=== PATIENT | female | born 1960 | race Caucasian/White ===

== ENCOUNTER 2016-08-21 08:10 | Emergency (ER) | payer OTHER ==
[~2016-08-21] VITALS: Ht 149.9 cm; Wt 59.9 kg
[~2016-08-21 08:10] MED LIST: 70/30 INSULIN SUBQ; FLAGYL 500500 MG/100 PO; LEVAQUIN500 MG PO; MICRONASE5 MG PO; NORCO 5/325 MG1 TAB PO; ORETIC25 MG PO; [UNRECOGNIZED DRUG - OTHER] SUBQ
[2016-08-21 08:13] VITALS: BP 146/56
--- NOTE | 2016-08-21 08:20 | NUR ---
PT AMBULATED TO ER BED 05.
--- NOTE | 2016-08-21 08:36 | NUR ---
56/F presents to ED for evaluation of headache x1 week. Patient describes headache as a dull, constant, radiating to neck intermittenly, 7/10. Patient also reports a bump to the back of her head, denies trauma or injury. Pt states "I just noticed it yesterday when I was in the shower." Pt also c/o intermittent nausea, denies vomiting. Denies fever but c/o being cold. Pt also c/o being tired and more sleepy than usual. c/o blurry vision to left eye. Patient is AOX4, ambulatory with steady gait. VSS. Hx of DM. Pt sitting comfortably reading magazine. No signs of distress noted.
[2016-08-21] MEDS ORDERED: KETOROLAC 15 MG/ML VIAL IVP ONE (09:00)
[2016-08-21] MEDS ORDERED: ONDANSETRON 4 MG/2 ML VIAL IVP ONE (09:00)
--- NOTE | 2016-08-21 09:37 | NUR ---
Patient expresses feeling better. 0/10. Headache improved, nausea improved. VSS.
[2016-08-21 10:12] VITALS: BP 113/62
--- NOTE | 2016-08-21 10:12 | NUR ---
IV removed, catheter intact and site benign. Applied folded 4x4 gauze and tape to stop bleeding.
--- NOTE | 2016-08-21 10:13 | NUR ---
Patient discharged with v/s stable. Written and verbal after care instructions given and explained. Patient alert, oriented and verbalized understanding of instructions. Ambulatory with steady gait. All questions addressed prior to discharge. ID band removed. Patient advised to follow up with PMD. Rx of TYLENOL, ZOFRAN, BENADRYL given. Patient educated on indication of medication including possible reaction and side effects. Opportunity to ask questions provided and answered.
--- NOTE | 2016-08-21 10:13 | NUR ---
Chart checked and completed. The patient's care was reviewed and supervised by Fredi Davies RN.
== END 2016-08-21 10:13 | disposition home or self-care (01) ==
LOC: MED 08:10
DX: G44.209 Tension-type headache, unspecified, not intractable (principal); E11.9 Type 2 diabetes mellitus without complications; I10 Essential (primary) hypertension; Z88.0 Allergy status to penicillin; Z79.4 Long term (current) use of insulin
CPT/HCPCS: 82948; 96374; 96375; 99284; J1885; J2405

== ENCOUNTER 2016-10-10 07:17 | Emergency (ER) | payer OTHER ==
[~2016-10-10] VITALS: Ht 149.9 cm; Wt 65.8 kg
[~2016-10-10 07:17] MED LIST changes: -FLAGYL 500500 MG/100 PO; -LEVAQUIN500 MG PO; +MIC5 PO; -MICRONASE5 MG PO; -NORCO 5/325 MG1 TAB PO; +ORE25 PO; -ORETIC25 MG PO
[2016-10-10 07:28] VITALS: BP 132/63
--- NOTE | 2016-10-10 07:30 | NUR ---
PATIENT PRESENTS TO ED WITH REDNESS, PRURITUS, SWELLING TO LIPS WITH NO AIRWAY INVOLVEMENT . PT STATES ITCHING SO MUCH IT HURTS NOW . DENIES N/V/D; SKIN IS FLUSHED/WARM/DRY; AAOX4 WITH EVEN AND STEADY GAIT; LUNGS CLEAR BL; HR EVEN AND REGULAR; PT DENIES ANY FEVER, CP, SOB, OR COUGH AT THIS TIME; PATIENT STATES PAIN OF 4/10 AT THIS TIME; VSS; PATIENT POSITIONED FOR COMFORT; HOB ELEVATED; BEDRAILS UP X2; BED DOWN. ER MD MADE AWARE OF PT STATUS.
--- NOTE | 2016-10-10 07:31 | NUR ---
Patient ambulated to bed 03.
--- NOTE | 2016-10-10 07:49 | NUR ---
Dr. James evaluating patient at bedside.
[2016-10-10] MEDS ORDERED: FAMOTIDINE 20 MG/2 ML VIAL IVP ONE (07:50)
[2016-10-10] MEDS ORDERED: diphenhydrAMINE 50 MG/ML VIAL IVP ONE (07:50)
[2016-10-10] MEDS ORDERED: methylPREDNISolone SS 125 MG in WATER STERILE 2 ML IV ONE (07:50)
[2016-10-10] MEDS ORDERED: hydrOXYzine 50 MG/ML VIAL IM ONE (07:50)
--- NOTE | 2016-10-10 09:45 | NUR ---
PT ADMITS FEELING LESS PRURITUS--MD SPOKE WITH PT
--- NOTE | 2016-10-10 09:45 | NUR ---
Patient discharged with v/s stable. Written and verbal after care instructions given and explained. Patient alert, oriented and verbalized understanding of instructions. Ambulatory with steady gait. All questions addressed prior to discharge. ID band removed. Patient advised to follow up with PMD. Rx of MEDROL/EPIPEN/PEPCID/BENADRYL given. Patient educated on indication of medication including possible reaction and side effects. Opportunity to ask questions provided and answered.
[2016-10-10 09:46] VITALS: BP 117/62
== END 2016-10-10 09:45 | disposition home or self-care (01) ==
LOC: MED 07:17
PROC: 3E033GC Introduction of Other Therapeutic Substance into Peripheral Vein, Percutaneous Approach (ICD-10-PCS; principal; 2016-10-10)
DX: T78.40XA Allergy, unspecified, initial encounter (principal); I10 Essential (primary) hypertension; E11.9 Type 2 diabetes mellitus without complications; R56.9 Unspecified convulsions; Z88.0 Allergy status to penicillin; X58.XXXA Exposure to other specified factors, initial encounter
CPT/HCPCS: 96372; 96374; 96375; 99284; J1200; J2930; J3410; J3490

== ENCOUNTER 2017-03-01 11:10 | Emergency (ER) | payer OTHER ==
[~2017-03-01] VITALS: Ht 152.4 cm; Wt 73.5 kg
[~2017-03-01 11:10] MED LIST changes: -MIC5 PO
[2017-03-01 11:37] VITALS: BP 152/73
[2017-03-01 11:59] LABS: BASOPHILS # (AUTO) 0.3 K/uL (0.00-0.22); BASOPHILS % (AUTO) 3.5 % (0.0-2.0); EOSINOPHILS # (AUTO) 0.4 K/uL (0-0.4); EOSINOPHILS % (AUTO) 4.4 % (0.0-4.0); HEMATOCRIT 42.3 % (36-48); HEMOGLOBIN 13.7 g/dL (12.0-16.0); LYMPHOCYTES # (AUTO) 2.2 K/uL (2.5-16.5); LYMPHOCYTES % (AUTO) 22.2 % (20.5-51.1); MEAN CORPUSCULAR HEMOGLOBIN 29 pg (27-31); MEAN CORPUSCULAR HGB CONC 32 g/dL (33-37); MEAN CORPUSCULAR VOLUME 91 fL (80-94); MONOCYTES # (AUTO) 0.7 K/uL (0.8-1.0); NEUTROPHILS # (AUTO) 6.3 K/uL (1.8-7.7); NEUTROPHILS % (AUTO) 62.9 % (42.2-75.2); PLATELET COUNT (AUTO) 259 K/uL (140-450); RED BLOOD CELL COUNT(AUTO) 4.68 MIL/uL (4.20-5.40); WHITE BLOOD COUNT (AUTO) 9.9 K/uL (4.8-10.8)
[2017-03-01 12:22] LABS: ANION GAP 11.3 (8-16); CALCIUM 9.5 mg/dL (8.5-10.1); CARBON DIOXIDE 27.8 mmol/L (21-32); CREATININE 0.7 mg/dL (0.6-1.3); POTASSIUM 4.1 mmol/L (3.5-5.1)
[2017-03-01 12:28] LABS: ALBUMIN 3.8 g/dL (3.4-5.0); TOTAL BILIRUBIN 0.4 mg/dL (0.0-1.0); TOTAL PROTEIN, SERUM 7.5 g/dL (6.4-8.2)
[2017-03-01 14:46] LABS: APPEARANCE,URINE CLEAR (CLEAR); BILIRUBIN,URINE NEGATIVE (NEGATIVE); BLOOD, URINE NEGATIVE (NEGATIVE); COLOR,URINE YELLOW (YELLOW); LEUKOCYTE ESTERASE ,URINE NEGATIVE (NEGATIVE); NITRITE, URINE NEGATIVE (NEGATIVE); PROTEIN,URINE NEGATIVE (NEGATIVE); UGLUCOSE NEGATIVE (NEGATIVE); UROBILINOGEN,URINE 0.2 EU/dL (0.2 - 1)
[2017-03-01 15:22] VITALS: BP 167/72
== END 2017-03-01 15:21 | disposition home or self-care (01) ==
LOC: MED 11:17
DX: R51 Headache (principal); M54.9 Dorsalgia, unspecified; M79.89 Other specified soft tissue disorders; Z88.0 Allergy status to penicillin; E11.9 Type 2 diabetes mellitus without complications; I10 Essential (primary) hypertension; F17.200 Nicotine dependence, unspecified, uncomplicated
CPT/HCPCS: 36415; 71020; 80053; 81003; 81025; 82948; 83690; 85025; 99285

== ENCOUNTER 2017-04-30 07:10 | Emergency (ER) | payer OTHER ==
[~2017-04-30] VITALS: Ht 149.9 cm; Wt 76.4 kg
[2017-04-30 07:15] VITALS: BP 135/66
--- NOTE | 2017-04-30 07:23 | NUR ---
AMBULATED TO ER BED 7
--- NOTE | 2017-04-30 07:26 | NUR ---
57F BIB SELF C/O CONGESTION WITH PRODUCTIVE COUGH AND YELLOW PHLEGM X 1 WEEK; BL LUNG SOUNDS CLEAR, RR EVEN/UNLABORED, EQUAL RISE/FALL OF CHEST NOTED AT THIS TIME; PT C/O BODY ACHES, ACHING, NON-RADIATING, 6/10 X 1 WEEK; PT AA&OX4, PERRLA; PT STATES NO N/V/D AT THIS TIME; SKIN IS WARM/DRY/INTACT AT THIS TIME; STEADY GAIT; PT RESTING IN BED WITH HOB ELEVATED AND IN LOWEST POSITION; POSITIONED FOR COMFORT; ER MD MADE AWARE OF STATUS. WILL CONTINUE TO MONITOR.
--- NOTE | 2017-04-30 07:31 | NUR ---
ER MD DR. AMADO EVALUATING PT AT BEDSIDE.
[2017-04-30 07:47] VITALS: BP 125/73
--- NOTE | 2017-04-30 07:47 | NUR ---
Patient discharged with v/s stable. PT HR 58 at discharge. Pt states no dizziness, headache, fatigue, shortness of breath or discomfort at this time. ER MD notified. Written and verbal after care instructions given and explained. Patient alert, oriented and verbalized understanding of instructions. Ambulatory with steady gait. All questions addressed prior to discharge. ID band removed. Patient advised to follow up with PMD. Rx of CODEINE/GUAIFENESIN 10MG-100MG/5ML & AZITHROMYCIN 250 MG TAB given. Patient educated on indication of medication including possible reaction and side effects. Opportunity to ask questions provided and answered.
== END 2017-04-30 07:47 | disposition home or self-care (01) ==
LOC: MED 07:10
DX: J06.9 Acute upper respiratory infection, unspecified (principal); E11.9 Type 2 diabetes mellitus without complications; I10 Essential (primary) hypertension; F17.210 Nicotine dependence, cigarettes, uncomplicated
CPT/HCPCS: 82948; 99283

== ENCOUNTER 2017-08-19 11:48 | Emergency (ER) | payer OTHER ==
[~2017-08-19] VITALS: Ht 149.9 cm; Wt 78.9 kg
[2017-08-19 12:01] VITALS: BP 149/64
--- NOTE | 2017-08-19 12:08 | NUR ---
PATIENT TO ER BED 3 VIA W/C
--- NOTE | 2017-08-19 12:10 | NUR ---
57f bib daughter with c/o 8/10 constant "sharp" left posterior knee pain radiating to left lower back and neck. Pt denies any recent injury or falls. Pt sts pain worse with movement. Swelling noted to left knee. + tenderness to touch. CMS and skin intact to bl lower extremities. Pt is aox4. RR are even and unlabored. Pt positioned to comfort, bed down. ER md aware of pt status. All needs met at this time. Will continue to monitor.
--- NOTE | 2017-08-19 12:15 | NUR ---
xray by bedside
--- NOTE | 2017-08-19 13:20 | NUR ---
DR. BROWN BEDSIDE
[2017-08-19] MEDS ORDERED: KETOROLAC 60 MG/2 ML VIAL IM ONE (13:25)
--- NOTE | 2017-08-19 13:51 | NUR ---
Patient discharged with v/s stable. Written and verbal after care instructions given and explained. Patient verbalized understanding. Ambulatory with steady gait. All questions addressed prior to discharge. Advised to follow up with PMD.
[2017-08-19 13:52] VITALS: BP 143/69
== END 2017-08-19 13:51 | disposition home or self-care (01) ==
LOC: MED 11:48
DX: M25.562 Pain in left knee (principal); E11.9 Type 2 diabetes mellitus without complications; I10 Essential (primary) hypertension; Z88.0 Allergy status to penicillin
CPT/HCPCS: 73562; 81002; 81025; 82948; 96372; 99284; J1885

== ENCOUNTER 2018-03-11 07:54 | Emergency (ER) | payer OTHER ==
[~2018-03-11] VITALS: Ht 160 cm; Wt 93.0 kg
--- NOTE | 2018-03-11 08:02 | NUR ---
PT AMBULATES TO BED 11
[2018-03-11 08:03] VITALS: BP 141/70
--- NOTE | 2018-03-11 08:06 | NUR ---
PROVIDED WITH URINE CUP FOR SAMPLE
--- NOTE | 2018-03-11 08:10 | NUR ---
PATIENT PRESENTS TO ED WITH COMPLAINTS OF ABDOMINAL PAIN WITH NAUSEA/VOMITING SINCE 2AM THIS MORNING. PATIENT STATES SHE GET A FLUSHED FEELING THROUGHOUT HER BODY AND STOMACH PAIN RIGHT BEFORE SHE VOMITS. PT REPORTS HX OF DIABETES AND INSULIN USE. ACCUCHECK BLOOD SUGAR AT TIME OF TRIAGE 293. PATIENT ALSO PROVIDED URINE AT TIME OF TRIAGE. SKIN IS PINK/WARM/DRY; AAOX4 WITH EVEN AND STEADY GAIT; LUNGS CLEAR BL; HR EVEN AND REGULAR; PT DENIES ANY CP, SOB, OR COUGH AT THIS TIME; PATIENT STATES PAIN OF 8/10 AT THIS TIME; VSS; PATIENT POSITIONED FOR COMFORT; HOB ELEVATED; BEDRAILS UP X1; BED DOWN. ER MD MADE AWARE OF PT STATUS.
[2018-03-11] MEDS ORDERED: NACL 0.9% 1,000 ML IV ONE (08:30)
[2018-03-11] MEDS ORDERED: METOCLOPRAMIDE 10 MG/2 ML INJ VIAL IVP ONE (08:30)
[2018-03-11] MEDS ORDERED: MORPHINE SULFATE 4 MG/ML SYR IVP ONE (08:30)
[2018-03-11] MEDS ORDERED: PROMETHAZINE 25 MG/ML VIAL IM ONE (08:30)
[2018-03-11] MEDS ORDERED: NACL 0.9% 1,000 ML IV SCH (08:30)
[2018-03-11] MEDS ORDERED: FAMOTIDINE 20 MG/2 ML VIAL IVP ONE (08:30)
--- NOTE | 2018-03-11 08:49 | NUR ---
ultrasound at bedside
[2018-03-11 09:27] LABS: BASOPHILS # (AUTO) 0.1 K/uL (0.00-0.22); BASOPHILS % (AUTO) 0.4 % (0.0-2.0); EOSINOPHILS # (AUTO) 0.5 K/uL (0-0.4); EOSINOPHILS % (AUTO) 3.6 % (0.0-4.0); HEMATOCRIT 39.7 % (36-48); LYMPHOCYTES # (AUTO) 2.2 K/uL (2.5-16.5); LYMPHOCYTES % (AUTO) 15.5 % (20.5-51.1); MEAN CORPUSCULAR HEMOGLOBIN 29 pg (27-31); MEAN CORPUSCULAR HGB CONC 33 g/dL (33-37); MEAN CORPUSCULAR VOLUME 88.6 fL (80-94); MONOCYTES # (AUTO) 0.6 K/uL (0.8-1.0); MONOCYTES % (AUTO) 4.5 % (1.7-9.3); NEUTROPHILS # (AUTO) 10.5 K/uL (1.8-7.7); PLATELET COUNT (AUTO) 262 K/uL (140-450); RED BLOOD CELL COUNT(AUTO) 4.49 MIL/uL (4.20-5.40); RED CELL DISTRIBUTION WIDTH 14.1 % (11.6-13.7); WHITE BLOOD COUNT (AUTO) 13.9 K/uL (4.8-10.8)
--- NOTE | 2018-03-11 09:35 | NUR ---
PT TAKEN TO CT IN WHEELCHAIR
[2018-03-11 09:47] LABS: ANION GAP 9.6 (8-16); CARBON DIOXIDE 26.2 mmol/L (21-32); CREATININE 0.5 mg/dL (0.6-1.3); POTASSIUM 3.8 mmol/L (3.5-5.1)
[2018-03-11 09:52] LABS: APPEARANCE,URINE CLEAR (CLEAR); BILIRUBIN,URINE NEGATIVE (NEGATIVE); BLOOD, URINE NEGATIVE (NEGATIVE); COLOR,URINE YELLOW (YELLOW); LEUKOCYTE ESTERASE ,URINE NEGATIVE (NEGATIVE); NITRITE, URINE NEGATIVE (NEGATIVE); PH,URINE 6.5 (5.0-9.0); UGLUCOSE 3+ (NEGATIVE)
[2018-03-11 09:55] LABS: ALBUMIN 3.3 g/dL (3.4-5.0); TOTAL BILIRUBIN 0.2 mg/dL (0.0-1.0)
[2018-03-11 10:12] LABS: RBC,URINE NONE SEEN /HPF (0-5); WBC,URINE 0-5 (RARE) /HPF (0-5)
[2018-03-11 11:53] VITALS: BP 139/72
--- NOTE | 2018-03-11 11:55 | NUR ---
Patient discharged with v/s stable. Written and verbal after care instructions given and explained. Patient alert, oriented and verbalized understanding of instructions. Ambulatory with steady gait. All questions addressed prior to discharge. ID band removed. Patient advised to follow up with PMD. Rx of NEXIUM AND REGLAN given. Patient educated on indication of medication including possible reaction and side effects. Opportunity to ask questions provided and answered.
== END 2018-03-11 11:55 | disposition home or self-care (01) ==
LOC: MED 07:54
DX: E11.43 Type 2 diabetes mellitus with diabetic autonomic (poly)neuropathy (principal); K31.84 Gastroparesis; K40.91 Unilateral inguinal hernia, without obstruction or gangrene, recurrent; Z88.0 Allergy status to penicillin; Z79.899 Other long term (current) drug therapy
CPT/HCPCS: 36415; 74176; 76705; 80053; 81001; 82150; 83690; 85025; 96361; 96372; 96374; 96375; 99285; J2270; J2550; J2765; J3490; J7030; Q0092

== ENCOUNTER 2018-06-25 05:45 | Emergency (ER) | payer OTHER ==
[~2018-06-25] VITALS: Ht 149.9 cm; Wt 81.6 kg
[2018-06-25 05:54] VITALS: BP 148/68
--- NOTE | 2018-06-25 05:57 | NUR ---
PT TAKEN TO BED 8
--- NOTE | 2018-06-25 06:00 | NUR ---
58/F CAME IN W C/O MIDSTERNAL CHEST PAIN NONPROVOKED, NONRADIATING X 3 DAYS WORSENED THIS MORNING. ALSO REPORTS BLURRY VISION AND HEADACHE, -MLAPSS. ALL LUNG SOUNDS CBTA, 18RR EVEN AND UNLABORED. SKIN IS WARM AND DRY. DENIES N/V. PMH: DM, HTN, HERNIA
[2018-06-25] MEDS ORDERED: ASPIRIN 325 MG TAB PO ONE (06:05)
--- NOTE | 2018-06-25 06:19 | NUR ---
X-Ray at bedside.
[2018-06-25 06:58] LABS: BASOPHILS # (AUTO) 0.1 K/uL (0.00-0.22); BASOPHILS % (AUTO) 0.7 % (0.0-2.0); EOSINOPHILS # (AUTO) 0.4 K/uL (0-0.4); EOSINOPHILS % (AUTO) 3.6 % (0.0-4.0); HEMATOCRIT 42.1 % (36-48); HEMOGLOBIN 13.6 g/dL (12.0-16.0); LYMPHOCYTES # (AUTO) 3.7 K/uL (2.5-16.5); LYMPHOCYTES % (AUTO) 32.7 % (20.5-51.1); MEAN CORPUSCULAR HEMOGLOBIN 28 pg (27-31); MEAN CORPUSCULAR HGB CONC 32 g/dL (33-37); MEAN CORPUSCULAR VOLUME 87.5 fL (80-94); MONOCYTES # (AUTO) 0.8 K/uL (0.8-1.0); MONOCYTES % (AUTO) 7.4 % (1.7-9.3); NEUTROPHILS # (AUTO) 6.2 K/uL (1.8-7.7); NEUTROPHILS % (AUTO) 55.6 % (42.2-75.2); PLATELET COUNT (AUTO) 295 K/uL (140-450); RED BLOOD CELL COUNT(AUTO) 4.82 MIL/uL (4.20-5.40); RED CELL DISTRIBUTION WIDTH 14.2 % (11.6-13.7); WHITE BLOOD COUNT (AUTO) 11.2 K/uL (4.8-10.8)
--- NOTE | 2018-06-25 07:09 | NUR ---
GAVE REPORT TO BOBBI AVILA
--- NOTE | 2018-06-25 07:10 | NUR ---
received report from anita toth.
[2018-06-25 07:14] LABS: ANION GAP 13.2 (8-16); CARBON DIOXIDE 27.1 mmol/L (21-32); CREATININE 0.8 mg/dL (0.6-1.3); POTASSIUM 3.3 mmol/L (3.5-5.1); TOTAL BILIRUBIN 0.5 mg/dL (0.0-1.0)
[2018-06-25 07:15] LABS: ALBUMIN 3.6 g/dL (3.4-5.0)
[2018-06-25 07:28] LABS: CREATINE KINASE MB 1.7 ng/mL (0-3.6)
--- NOTE | 2018-06-25 07:30 | NUR ---
Patient being evaluated by DR BROWN at bedside.
[2018-06-25] MEDS ORDERED: KETOROLAC 30 MG/ML VIAL IVP ONE (07:35)
--- NOTE | 2018-06-25 08:13 | NUR ---
PT RETURNED FROM X RAY VIA W/C, ACCOMPANIED BY MIXER OPERATOR.
--- NOTE | 2018-06-25 08:24 | NUR ---
Patient appears to be resting comfortably in bed. Vital BP 136/57, P55, Respirations even and unlabored. L CHEST PAIN 4/10 AT THIS TIME.WILL CONTINUE TO MONITOR.
--- NOTE | 2018-06-25 08:35 | NUR ---
Patient being reevaluated by DR BROWN at bedside.
[2018-06-25 08:45] VITALS: BP 136/57
== END 2018-06-25 08:45 | disposition home or self-care (01) ==
LOC: MED 05:45
DX: R07.89 Other chest pain (principal); R10.30 Lower abdominal pain, unspecified; E11.9 Type 2 diabetes mellitus without complications; I10 Essential (primary) hypertension; Z88.0 Allergy status to penicillin; Z88.8 Allergy status to other drugs, medicaments and biological substances
CPT/HCPCS: 36415; 71045; 71100; 80053; 81002; 82550; 82553; 83690; 84484; 85025; 93005; 96374; 99284; J1885; Q0092

== ENCOUNTER 2018-11-01 09:10 | Emergency (ER) | payer OTHER ==
[~2018-11-01] VITALS: Ht 149.9 cm; Wt 81.6 kg
[2018-11-01 09:14] VITALS: BP 125/68
--- NOTE | 2018-11-01 09:18 | NUR ---
Patient ambulated to bed 8. RN evaluating patient at bedside.
--- NOTE | 2018-11-01 09:19 | NUR ---
Report given to Amelia AVILA.
--- NOTE | 2018-11-01 09:22 | NUR ---
58 Y FEMALE BIB SELF C/O PRODUCTIVE COUGH X 1 WEEK WORSENING OVER THE LAST COUPLE DAYS, HEADACHE AND CHEST PAIN WITH COUGH 4/10, DESCRIBES PAIN ACHING. CLEAR BILATERAL LUNG SOUNDS. -N/V. BED IS DOWN, LOCKED, BED RAIL X 1, ERMD NOTIFIED. PMH- DM RX- INSULIN
--- NOTE | 2018-11-01 09:45 | NUR ---
Dr. Bolivar evaluating patient at bedside.
[2018-11-01] MEDS ORDERED: ALBUTEROL SULFATE/IPRATROPIU 3 ML SOL IH ONE (09:50)
--- NOTE | 2018-11-01 09:54 | NUR ---
pt being taken to xray
--- NOTE | 2018-11-01 10:00 | NUR ---
flu swab collected
[2018-11-01 11:25] VITALS: BP 128/70
--- NOTE | 2018-11-01 11:25 | NUR ---
Patient discharged with v/s stable. Written and verbal after care instructions given and explained. Patient alert, oriented and verbalized understanding of instructions. Ambulatory with steady gait. All questions addressed prior to discharge. ID band removed. Patient advised to follow up with PMD. Rx of azithromycin, albuterol given. Patient educated on indication of medication including possible reaction and side effects. Opportunity to ask questions provided and answered.
== END 2018-11-01 11:25 | disposition home or self-care (01) ==
LOC: MED 09:10
DX: J40 Bronchitis, not specified as acute or chronic (principal); E11.9 Type 2 diabetes mellitus without complications; I10 Essential (primary) hypertension; Z88.0 Allergy status to penicillin; Z79.899 Other long term (current) drug therapy
CPT/HCPCS: 71046; 87804; 94640; 99284; J7620

== ENCOUNTER 2018-12-20 12:03 | Emergency (ER) | payer OTHER ==
[~2018-12-20] VITALS: Ht 149.9 cm; Wt 82.7 kg
--- NOTE | 2018-12-20 12:20 | NUR ---
PT TO ER BED 6
[2018-12-20 12:24] VITALS: BP 146/77
--- NOTE | 2018-12-20 12:30 | NUR ---
PT AMB TO RESTROOM WITH STEADY GAIT FOR URINE SAMPLE
--- NOTE | 2018-12-20 12:35 | NUR ---
58 Y FEMALE BIB SELF C/O BLOATING MID ABDOMINAL PAIN SINCE LAST TUESDAY. DENIES NVD. LAST BM THIS AM, PT DESCRIBED IT "MUSHY". BOWEL SOUNDS ACTIVE IN ALL 4 QUADRANTS. ABDOMEN TENDER TO TOUCH, SOFT AND ROUND. PAIN 5/10. DENIES FLANK PAIN/DYSURIA. VSS AT THIS TIME. AA0X4. BED IS DOWN, LOCKED, BED RAIL X 1, ERMD TO SEE PT. HX; DM, HTN
--- NOTE | 2018-12-20 12:42 | NUR ---
ACCU CHECK 252
--- NOTE | 2018-12-20 12:48 | NUR ---
RESIDENT GERMAIN AT PT BEDSIDE
--- NOTE | 2018-12-20 13:10 | NUR ---
DR HURST AT BEDSIDE
[2018-12-20 13:32] LABS: BILIRUBIN,URINE NEGATIVE (NEGATIVE); BLOOD, URINE NEGATIVE (NEGATIVE); COLOR,URINE YELLOW (YELLOW); LEUKOCYTE ESTERASE ,URINE NEGATIVE (NEGATIVE); NITRITE, URINE NEGATIVE (NEGATIVE); UGLUCOSE 3+ (NEGATIVE)
[2018-12-20 13:38] LABS: APPEARANCE,URINE CLEAR (CLEAR); RBC,URINE 0-5 /HPF (0-5); WBC,URINE 0-5 /HPF (0-5)
--- NOTE | 2018-12-20 13:48 | NUR ---
IV 18 GA RT HAND, BLOOD SENT TO LAB.
[2018-12-20 13:52] LABS: BASOPHILS # (AUTO) 0.1 K/uL (0.00-0.22); BASOPHILS % (AUTO) 0.6 % (0.0-2.0); EOSINOPHILS # (AUTO) 0.3 K/uL (0-0.4); EOSINOPHILS % (AUTO) 2.9 % (0.0-4.0); HEMATOCRIT 42.1 % (36-48); HEMOGLOBIN 13.8 g/dL (12.0-16.0); LYMPHOCYTES # (AUTO) 2.4 K/uL (2.5-16.5); LYMPHOCYTES % (AUTO) 20.6 % (20.5-51.1); MEAN CORPUSCULAR HEMOGLOBIN 29 pg (27-31); MEAN CORPUSCULAR HGB CONC 33 g/dL (33-37); MEAN CORPUSCULAR VOLUME 88.2 fL (80-94); MONOCYTES # (AUTO) 0.6 K/uL (0.8-1.0); NEUTROPHILS # (AUTO) 8.4 K/uL (1.8-7.7); NEUTROPHILS % (AUTO) 70.9 % (42.2-75.2); PLATELET COUNT (AUTO) 314 K/uL (140-450); RED BLOOD CELL COUNT(AUTO) 4.78 MIL/uL (4.20-5.40); RED CELL DISTRIBUTION WIDTH 14.4 % (11.6-13.7); WHITE BLOOD COUNT (AUTO) 11.8 K/uL (4.8-10.8)
--- NOTE | 2018-12-20 14:01 | NUR ---
IV R AC 18 G PLACED BY JUAN C AVILA
--- NOTE | 2018-12-20 14:08 | NUR ---
PT SIGNED CONSENT FORM FOR CT WITH CONTRAST
[2018-12-20 14:16] LABS: ALBUMIN 3.4 g/dL (3.4-5.0); ANION GAP 13.6 (8-16); CARBON DIOXIDE 24.3 mmol/L (21-32); CREATININE 0.7 mg/dL (0.6-1.3); POTASSIUM 3.9 mmol/L (3.5-5.1); TOTAL BILIRUBIN 0.2 mg/dL (0.0-1.0)
--- NOTE | 2018-12-20 14:30 | NUR ---
PT BEING TAKEN TO CT
--- NOTE | 2018-12-20 14:41 | NUR ---
PT RETURNED FROM CT. AA0X4.
[2018-12-20] MEDS ORDERED: diphenhydrAMINE 50 MG/ML VIAL IVP ONE (14:50)
--- NOTE | 2018-12-20 14:57 | NUR ---
PT GIVEN BENADRYL IVP. PT C/O TINGLING IN FACE AND LIPS AFTER CT CONTRAST. WILL CONTINUE TO MONITOR.
--- NOTE | 2018-12-20 15:15 | NUR ---
PT ASTATES THE TINGLING HAS STOPPED.
--- NOTE | 2018-12-20 16:00 | NUR ---
PT AMB TO RESTROOM WITH STEADY GAIT
--- NOTE | 2018-12-20 17:08 | NUR ---
VSS AT THIS TIME. PT AA0X4. PAIN 09/03.
[2018-12-20 18:05] VITALS: BP 131/55
--- NOTE | 2018-12-20 18:05 | NUR ---
Patient discharged with v/s stable. Written and verbal after care instructions given and explained. Patient alert, oriented and verbalized understanding of instructions. Ambulatory with steady gait. All questions addressed prior to discharge. ID band removed. Patient advised to follow up with PMD. Rx of BLADE NIETO given. Patient educated on indication of medication including possible reaction and side effects. Opportunity to ask questions provided and answered.
== END 2018-12-20 18:05 | disposition home or self-care (01) ==
LOC: MED 12:03
DX: R10.9 Unspecified abdominal pain (principal); R14.0 Abdominal distension (gaseous); I10 Essential (primary) hypertension; E11.9 Type 2 diabetes mellitus without complications; Z88.0 Allergy status to penicillin; Z79.4 Long term (current) use of insulin
CPT/HCPCS: 36415; 74177; 80053; 81001; 82948; 83690; 83880; 85025; 96374; 99284; J1200; Q9967; 81025

== ENCOUNTER 2019-01-21 07:56 | Emergency (ER) | payer OTHER ==
[~2019-01-21] VITALS: Ht 149.9 cm; Wt 82.6 kg
[2019-01-21 07:59] VITALS: BP 163/73
--- NOTE | 2019-01-21 08:03 | NUR ---
PATIENT AMBULATED TO BED 4.
--- NOTE | 2019-01-21 08:06 | NUR ---
PT PRESENTS TO ED WITH C/O PRODUCTIVE COUGH AND RUNNY NOSE X 3 DAYS. +NAUSEA, +VOMITING, +FEVER; AFEBRILE AT THIS TIME. RR EVEN AND UNLABORED. VSS. ERMD TO EVALUATE PT.
[2019-01-21] MEDS ORDERED: DEXAMETHASONE 10 MG/ML VIAL IM ONE (08:20)
[2019-01-21] MEDS ORDERED: CLINDAMYCIN 600 MG/4 ML VIAL IM ONE (08:20)
[2019-01-21] MEDS ORDERED: ALBUTEROL SULFATE/IPRATROPIU 3 ML SOL IH ONE (08:20)
[2019-01-21 08:45] VITALS: BP 133/47
--- NOTE | 2019-01-21 08:45 | NUR ---
Patient discharged with v/s stable. Written and verbal after care instructions given and explained. Patient alert, oriented and verbalized understanding of instructions. Ambulatory with steady gait. All questions addressed prior to discharge. ID band removed. Patient advised to follow up with PMD. Rx of Promethazine, Azithromycin, Prednisone given. Patient educated on indication of medication including possible reaction and side effects. Opportunity to ask questions provided and answered.
== END 2019-01-21 08:45 | disposition home or self-care (01) ==
LOC: MED 07:56
DX: J40 Bronchitis, not specified as acute or chronic (principal); E11.9 Type 2 diabetes mellitus without complications; I10 Essential (primary) hypertension; Z79.4 Long term (current) use of insulin; Z79.899 Other long term (current) drug therapy; Z88.0 Allergy status to penicillin
CPT/HCPCS: 94640; 96372; 99283; J1100; J3490; J7620

== ENCOUNTER 2019-02-20 06:35 | Emergency (ER) | payer OTHER ==
[~2019-02-20] VITALS: Ht 149.9 cm; Wt 82.6 kg
[2019-02-20 06:40] VITALS: BP 173/76
--- NOTE | 2019-02-20 06:48 | NUR ---
PT AMBULATED TO BED 8. Addendum: 02/20/19 at 0651 by MEDJ PT AMBULATED TO BED 9.
--- NOTE | 2019-02-20 06:52 | NUR ---
Note undone in EDM - 02/20/19 at 0659 by MEDJOSHUA PT CAME TO ER C/O OF RASH ON RIGHT LEG AND TRUNK REGION. RASH AREA IS RED, WARM, FIRM, AND EDEMATOUS. NO DRAINAGE OR OPEN AREAS NOTED. PT HAS GENERALIZED WEAKNESS, SORE THROAT, AND FEVER AT HOME SINCE THE ONSET OF RASH. CURRENTLY AFEBRILE. PAIN LEVEL 5/10, BURNING AND ITCHING. PT TOOK BENADRYL LAST NIGHT WITH MILD RELIEF. SAFETY MEASURES IN PLACE. WAITING FOR ERMD TO EVALUATE PT.
--- NOTE | 2019-02-20 06:52 | NUR ---
PT CAME TO ER C/O OF RASH ON RIGHT LEG AND TRUNK REGION SINCE TUESDAY. RASH AREA IS RED, WARM, FIRM, AND EDEMATOUS. NO DRAINAGE OR OPEN AREAS NOTED. PT HAS GENERALIZED WEAKNESS, SORE THROAT, AND FEVER AT HOME SINCE THE ONSET OF RASH. CURRENTLY AFEBRILE. PAIN LEVEL 5/10, BURNING AND ITCHING. PT TOOK BENADRYL LAST NIGHT AROUND 8PM WITH MILD RELIEF. SAFETY MEASURES IN PLACE. WAITING FOR ERMD TO EVALUATE PT.
--- NOTE | 2019-02-20 07:23 | NUR ---
PT. BEING SEEN BY DOCTOR.
[2019-02-20] MEDS ORDERED: SULFAMETH/TRIMETH DS 800/160MG 1 TAB PO ONE (07:25)
[2019-02-20 07:41] VITALS: BP 173/76
--- NOTE | 2019-02-20 07:43 | NUR ---
Patient discharged with v/s stable. Written and verbal after care instructions given and explained. Patient alert, oriented and verbalized understanding of instructions. Ambulatory with steady gait. All questions addressed prior to discharge. ID band removed. Patient advised to follow up with PMD. Rx of BACTRIM DS 800MG-160MG AND BENADRYL TOPICAL CREAM given. Patient educated on indication of medication including possible reaction and side effects. Opportunity to ask questions provided and answered.
== END 2019-02-20 07:43 | disposition home or self-care (01) ==
LOC: MED 06:35
DX: S70.361A Insect bite (nonvenomous), right thigh, initial encounter (principal); S70.362A Insect bite (nonvenomous), left thigh, initial encounter; L03.115 Cellulitis of right lower limb; L03.116 Cellulitis of left lower limb; E11.9 Type 2 diabetes mellitus without complications; I10 Essential (primary) hypertension; Z88.0 Allergy status to penicillin; Z79.4 Long term (current) use of insulin; Z79.899 Other long term (current) drug therapy; W57.XXXA Bitten or stung by nonvenomous insect and other nonvenomous arthropods, initial encounter; Y93.89 Activity, other specified; Y92.89 Other specified places as the place of occurrence of the external cause; Y99.8 Other external cause status
CPT/HCPCS: 99283

== ENCOUNTER 2019-05-05 07:57 | Emergency (ER) | payer OTHER ==
[~2019-05-05] VITALS: Ht 149.9 cm; Wt 81.6 kg
[2019-05-05 08:00] VITALS: BP 126/63
--- NOTE | 2019-05-05 08:03 | NUR ---
Patient ambulated to bed 03.
--- NOTE | 2019-05-05 08:10 | NUR ---
PT BIB SELF C/O COUGH X3 DAYS. PT REPORTS PRODUCTIVE COUGH WITH YELLOW SPUTUM THE FIRST 2 DAYS AND THEN THICK WHITE SPUTUM TODAY, RR EVEN AND NON LABORED, BREATH SOUDNS CLEAR THROUGHOUT, PT DENIES SOB, PRESENCE OF DRY SOUNDING COUGH NOTED. PT REPORTS 8/10 "DRY PAIN" IN THROAT AND BACK WITH COUGH. VSS. ER TO SEE PT. MEDHX: DM RX: INSULIN
[2019-05-05] MEDS ORDERED: ALBUTEROL SULFATE/IPRATROPIU 3 ML SOL IH ONE (08:15)
--- NOTE | 2019-05-05 08:19 | NUR ---
Breathing treatment administered at bedside by respiratory therapist.
[2019-05-05 08:29] VITALS: BP 126/63
--- NOTE | 2019-05-05 08:29 | NUR ---
Patient discharged with v/s stable. Written and verbal after care instructions given and explained. Patient alert, oriented and verbalized understanding of instructions. Ambulatory with steady gait. All questions addressed prior to discharge. ID band removed. Patient advised to follow up with PMD. Rx of JESSICA WATSON given. Patient educated on indication of medication including possible reaction and side effects. Opportunity to ask questions provided and answered.
== END 2019-05-05 08:30 | disposition home or self-care (01) ==
LOC: MED 07:57
DX: R05 Cough (principal); R06.02 Shortness of breath; I10 Essential (primary) hypertension; E11.9 Type 2 diabetes mellitus without complications; Z79.4 Long term (current) use of insulin; Z79.899 Other long term (current) drug therapy; Z88.0 Allergy status to penicillin
CPT/HCPCS: 94640; 99283; J7620

== ENCOUNTER 2019-05-09 14:25 | Emergency (ER) | payer OTHER ==
[~2019-05-09] VITALS: Ht 149.9 cm; Wt 81.6 kg
[2019-05-09 14:38] VITALS: BP 125/73
[2019-05-09] MEDS: DEXAMETHASONE 10 MG/ML VIAL IM ONE (15:27)
[2019-05-09] MEDS: KETOROLAC 30 MG/ML VIAL IM ONE (15:27)
[2019-05-09 15:52] VITALS: BP 122/70
== END 2019-05-09 15:51 | disposition home or self-care (01) ==
LOC: MED 14:25
DX: H66.92 Otitis media, unspecified, left ear (principal); J40 Bronchitis, not specified as acute or chronic; E11.9 Type 2 diabetes mellitus without complications; I10 Essential (primary) hypertension; Z79.4 Long term (current) use of insulin; Z79.899 Other long term (current) drug therapy; Z88.0 Allergy status to penicillin
CPT/HCPCS: 96372; 99283; J1100; J1885

== ENCOUNTER 2019-07-07 19:25 | Emergency (ER) | payer OTHER ==
[~2019-07-07] VITALS: Ht 149.9 cm; Wt 82.1 kg
[2019-07-07 19:31] VITALS: BP 134/57
--- NOTE | 2019-07-07 19:43 | NUR ---
PT TAKEN TO BED 9
--- NOTE | 2019-07-07 19:44 | NUR ---
JOSE ALEJANDRO CHEN EXAMINING PATIENT
--- NOTE | 2019-07-07 19:45 | NUR ---
59 Y/O FEMALE C/O LT ARM PAIN S/P RECEVING SHINGLES VACCINE ON 07/04/19. AREA REDDENED AND WARM TO THE TOUCH. PT STATES 7/10 THROBBING PAIN. PT STATES PURPLE AREA UNDER RT BREAST. RT BREAST TENDER TO THE TOUCH. DENIES CHEST PAIN/SOB. RR EVEN AND UNLABORED. PT SITTING IN BED CALM AND PLEASANT. VSS. MEDHX: DM ALLERGIES: PENICILLIN
[2019-07-07 19:57] VITALS: BP 134/57
--- NOTE | 2019-07-07 19:59 | NUR ---
Patient discharged with v/s stable. Written and verbal after care instructions given and explained. Patient alert, oriented and verbalized understanding of instructions. Ambulatory with steady gait. All questions addressed prior to discharge. ID band removed. Patient advised to follow up with PMD. Rx of BACTRIM AND IBURPROFEN given. Patient educated on indication of medication including possible reaction and side effects. Opportunity to ask questions provided and answered.
== END 2019-07-07 19:59 | disposition home or self-care (01) ==
LOC: MED 19:25
DX: T88.0XXA Infection following immunization, initial encounter (principal); L03.114 Cellulitis of left upper limb; N61.0 Mastitis without abscess; E11.9 Type 2 diabetes mellitus without complications; I10 Essential (primary) hypertension; Z79.899 Other long term (current) drug therapy; Z79.4 Long term (current) use of insulin; Z88.0 Allergy status to penicillin; Y92.89 Other specified places as the place of occurrence of the external cause
CPT/HCPCS: 99283

== ENCOUNTER 2019-12-18 13:08 | Emergency (ER) | payer OTHER ==
[~2019-12-18] VITALS: Ht 149.9 cm; Wt 81.6 kg
[2019-12-18 13:20] VITALS: BP 148/64
--- NOTE | 2019-12-18 13:20 | NUR ---
59/F presents to ED ambulatory, c/o diarrhea, L sided abd pain and headache x1week; n/v x2 days. Reports sweating at night but no fever, afebrile at this time. Pt awake and alert, skin normal color warm and dry, rr even and unlabored. Abd soft round mildly tender to L sided mid abd, no guarding. Hx HTN, DM, L inguinal hernia repair
--- NOTE | 2019-12-18 13:20 | NUR ---
Negative screen for covid-19
--- NOTE | 2019-12-18 13:45 | NUR ---
DR. CERVANTES AT BEDSIDE EVALUATING PT
[2019-12-18] MEDS ORDERED: NACL 0.9% 1,000 ML IV ONE (13:54)
[2019-12-18] MEDS ORDERED: KETOROLAC 30 MG/ML VIAL IVP ONE (13:55)
[2019-12-18] MEDS ORDERED: ONDANSETRON 4 MG/2 ML VIAL IVP ONE (13:55)
[2019-12-18 14:21] LABS: BASOPHILS # (AUTO) 0.1 K/uL (0.00-0.22); BASOPHILS % (AUTO) 0.8 % (0.0-2.0); EOSINOPHILS # (AUTO) 0.3 K/uL (0-0.4); EOSINOPHILS % (AUTO) 2.2 % (0.0-4.0); HEMATOCRIT 42.1 % (36-48); HEMOGLOBIN 13.8 g/dL (12.0-16.0); LYMPHOCYTES # (AUTO) 2.9 K/uL (2.5-16.5); LYMPHOCYTES % (AUTO) 21.9 % (20.5-51.1); MEAN CORPUSCULAR HEMOGLOBIN 29 pg (27-31); MEAN CORPUSCULAR HGB CONC 33 g/dL (33-37); MEAN CORPUSCULAR VOLUME 87.8 fL (80-94); MONOCYTES # (AUTO) 0.8 K/uL (0.8-1.0); MONOCYTES % (AUTO) 6.1 % (1.7-9.3); NEUTROPHILS # (AUTO) 9.3 K/uL (1.8-7.7); PLATELET COUNT (AUTO) 305 K/uL (140-450); RED CELL DISTRIBUTION WIDTH 14.6 % (11.6-13.7); WHITE BLOOD COUNT (AUTO) 13.4 K/uL (4.8-10.8)
--- NOTE | 2019-12-18 14:25 | NUR ---
Pt taken to CT via wheelchair.
[2019-12-18 14:37] LABS: ALBUMIN 3.4 g/dL (3.4-5.0); ANION GAP 11.1 (8-16); CARBON DIOXIDE 26.5 mmol/L (21-32); CREATININE 0.9 mg/dL (0.6-1.3); POTASSIUM 4.6 mmol/L (3.5-5.1); TOTAL BILIRUBIN 0.5 mg/dL (0.0-1.0)
[2019-12-18 15:22] VITALS: BP 144/62
--- NOTE | 2019-12-18 15:23 | NUR ---
Patient discharged with v/s stable. Written and verbal after care instructions given and explained. Patient alert, oriented and verbalized understanding of instructions. Ambulatory with steady gait. All questions addressed prior to discharge. ID band removed. Patient advised to follow up with PMD. Rx of tramadol,zofran given. Patient educated on indication of medication including possible reaction and side effects. Opportunity to ask questions provided and answered.
== END 2019-12-18 15:23 | disposition home or self-care (01) ==
LOC: MED 13:08
DX: A08.4 Viral intestinal infection, unspecified (principal); R11.2 Nausea with vomiting, unspecified; E11.9 Type 2 diabetes mellitus without complications; I10 Essential (primary) hypertension; Z98.890 Other specified postprocedural states; Z79.899 Other long term (current) drug therapy; Z88.0 Allergy status to penicillin; Z79.4 Long term (current) use of insulin
CPT/HCPCS: 36415; 74176; 80053; 85025; 96361; 96374; 96375; 99284; J1885; J2405; J7030

== ENCOUNTER 2020-02-18 04:30 | Emergency (ER) | payer OTHER ==
[~2020-02-18] VITALS: Ht 149.9 cm; Wt 80.7 kg
[2020-02-18 04:42] VITALS: BP 151/74
[2020-02-18 05:20] VITALS: BP 151/74
== END 2020-02-18 05:21 | disposition home or self-care (01) ==
LOC: MED 04:30
DX: L03.311 Cellulitis of abdominal wall (principal); E11.9 Type 2 diabetes mellitus without complications; I10 Essential (primary) hypertension; Z88.0 Allergy status to penicillin; Z79.899 Other long term (current) drug therapy
CPT/HCPCS: 99283

== ENCOUNTER 2020-02-27 11:12 | Emergency (ER) | payer OTHER ==
[~2020-02-27] VITALS: Ht 149.9 cm; Wt 81.6 kg
[2020-02-27 11:16] VITALS: BP 151/74
--- NOTE | 2020-02-27 11:25 | NUR ---
60 YO FEMALE C/O LUMP ,REDNESS & PAIN TO RIGHT LOWER ABDOMEN X 1 MONTH. SEEN HERE SAME S/S 02/18/20. MED HX: DM, HTN
[2020-02-27] MEDS ORDERED: BLOOD GLUCOSE MONITORING 1 DEV DEV FS ONE (12:40)
--- NOTE | 2020-02-27 13:38 | NUR ---
Bandaid placed to abscess to rt lower abd
[2020-02-27 14:21] VITALS: BP 151/74
== END 2020-02-27 14:22 | disposition home or self-care (01) ==
LOC: MED 11:12
DX: L02.211 Cutaneous abscess of abdominal wall (principal); L03.311 Cellulitis of abdominal wall; E11.9 Type 2 diabetes mellitus without complications; I10 Essential (primary) hypertension; Z88.0 Allergy status to penicillin
CPT/HCPCS: 99283

== ENCOUNTER 2020-03-09 09:18 | Emergency (ER) | payer OTHER ==
[~2020-03-09] VITALS: Ht 134.6 cm; Wt 80.3 kg
[2020-03-09 09:20] VITALS: BP 155/62
--- NOTE | 2020-03-09 09:26 | NUR ---
Patient ambulated to bed 4.
--- NOTE | 2020-03-09 09:31 | NUR ---
60 YO FEMALE CO BILATERAL LOWER EXTREMITY RASH X 1 DAY. PER PT SEEN IN ER [facility] ON THE February FOR ABSCESS, GIVEN ABX BACTRIM, BELIEVES ALLERGIC REACTION TO IT. PER PT FIRST TIME HAVING BACTRIM, PT STOPPED TAKING ABX. PT PRESENTS,EUPNIC,VSS,AMBULATORY,A/OX4. HX DM
[2020-03-09] MEDS ORDERED: diphenhydrAMINE 50 MG/ML VIAL IVP ONE (09:35)
[2020-03-09] MEDS ORDERED: methylPREDNISolone SS 125 MG in WATER STERILE 2 ML IV ONE (09:35)
[2020-03-09] MEDS ORDERED: EPINEPHrine 1:1000 - 1 MG/ML AMP SUBQ ONE (09:35)
[2020-03-09] MEDS ORDERED: methylPREDNISolone SS 125 MG/2 ML VIAL ONE (09:59)
[2020-03-09] MEDS ORDERED: WATER STERILE 10 ML MC ONE (09:59)
--- NOTE | 2020-03-09 10:25 | NUR ---
PT STATES THAT THE ITCHING IS GONE AND SHE CAN BREATHE BETTER AFTER THE MEDICATIONS WERE GIVEN.
[2020-03-09 10:33] VITALS: BP 155/62
--- NOTE | 2020-03-09 10:33 | NUR ---
Patient discharged with v/s stable. Written and verbal after care instructions given and explained. Patient alert, oriented and verbalized understanding of instructions. Ambulatory with steady gait. All questions addressed prior to discharge. ID band removed. Patient advised to follow up with PMD. Rx of WILY given. Patient educated on indication of medication including possible reaction and side effects. Opportunity to ask questions provided and answered.
== END 2020-03-09 10:33 | disposition home or self-care (01) ==
LOC: MED 09:18
DX: T78.49XA Other allergy, initial encounter (principal); X58.XXXA Exposure to other specified factors, initial encounter; E11.9 Type 2 diabetes mellitus without complications; I10 Essential (primary) hypertension; Z79.899 Other long term (current) drug therapy; Z88.0 Allergy status to penicillin; Z98.890 Other specified postprocedural states
CPT/HCPCS: 96372; 96374; 96375; 99284; J0171; J1200; J2930

== ENCOUNTER 2020-05-20 07:45 | Emergency (ER) | payer OTHER ==
[~2020-05-20] VITALS: Ht 149.9 cm; Wt 78.0 kg
[2020-05-20 07:50] VITALS: BP 166/77
[2020-05-20] MEDS ORDERED: LIDOCAINE/EPI 1% 1:100000 20 ML VIAL INJ ONE (08:10)
[2020-05-20] MEDS ORDERED: cephALEXin 500 MG CAP PO ONE (08:15)
[2020-05-20] MEDS ORDERED: SULFAMETH/TRIMETH DS 800/160MG 1 TAB PO ONE (08:15)
[2020-05-20 08:44] VITALS: BP 155/74
== END 2020-05-20 08:44 | disposition home or self-care (01) ==
LOC: EEVIPCON 07:45 → MED 07:45
DX: L02.211 Cutaneous abscess of abdominal wall (principal); E11.9 Type 2 diabetes mellitus without complications; I10 Essential (primary) hypertension; Z88.0 Allergy status to penicillin; Z79.899 Other long term (current) drug therapy
CPT/HCPCS: 10060; 82948; 87070; 87075; 87205; 99284; J2001

== ENCOUNTER 2020-08-15 00:05 | Emergency (ER) | payer OTHER ==
[~2020-08-15] VITALS: Ht 149.9 cm; Wt 77.1 kg
[2020-08-15 00:10] VITALS: BP 160/67
[2020-08-15] MEDS ORDERED: LIDOCAINE MPF 1% 10 MG/ML VIAL INJ ONE (00:25)
--- NOTE | 2020-08-15 00:27 | NUR ---
PT HAS HX OF LOWER ABD ABSCESSES, STATES SHE NOTICED ONE APPROXIMATELY 1 WEEK AGO AND IT HAS GOTTEN PROGRESSIVELY LARGER AND MORE PAINFUL. SKIN IS INTACT, NO DRAINING FROM SITE. PT AFEBRILE. PAIN CURRENTLY RADIATES INTO RIGHT THIGH AREA WITH SWELLING NOTED. PT PLACED IN GOWN. BED IN LOWEST POSITION AND SIDERAIL UP X 1. HX - DM, HTN ALLERGIES - PCN
--- NOTE | 2020-08-15 00:30 | NUR ---
AT [facility] FOR [facility], ANTIBIOTIC OINT AND DRESSING APPLIED AFTER PROCEDURE
[2020-08-15] MEDS ORDERED: BACITRACIN OINT 500 UNITS/GM PKT TP ONE ×2 (00:36→00:50)
--- NOTE | 2020-08-15 00:50 | NUR ---
Patient discharged with v/s stable. Written and verbal after care instructions given and explained. Patient alert, oriented and verbalized understanding of instructions. Ambulatory with steady gait. All questions addressed prior to discharge. ID band removed. Patient advised to follow up with PMD. Rx of CLINDAMYCIN given. Patient educated on indication of medication including possible reaction and side effects. Opportunity to ask questions provided and answered.
[2020-08-15 00:51] VITALS: BP 160/67
== END 2020-08-15 00:45 | disposition home or self-care (01) ==
LOC: MED 00:05
DX: L02.211 Cutaneous abscess of abdominal wall (principal); E11.9 Type 2 diabetes mellitus without complications; I10 Essential (primary) hypertension; Z88.0 Allergy status to penicillin; Z79.899 Other long term (current) drug therapy
CPT/HCPCS: 10060; 99284; J2001

== ENCOUNTER 2020-10-10 06:04 | Emergency (ER) | payer OTHER ==
[~2020-10-10] VITALS: Ht 149.9 cm; Wt 79.5 kg
[~2020-10-10 06:04] MED LIST changes: +HYDR-4004 PO; -ORE25 PO
[2020-10-10 06:09] VITALS: BP 151/59
[2020-10-10] MEDS ORDERED: KETOROLAC 60 MG/2 ML VIAL IM ONE (06:50)
[2020-10-10] MEDS ORDERED: IBUP-2213 PO (06:57)
[2020-10-10] MEDS ORDERED: PRED20TA5 PO (06:57)
[2020-10-10 07:21] VITALS: BP 151/59
== END 2020-10-10 07:22 | disposition home or self-care (01) ==
LOC: MED 06:04
DX: J02.9 Acute pharyngitis, unspecified (principal); E11.9 Type 2 diabetes mellitus without complications; I10 Essential (primary) hypertension; Z88.0 Allergy status to penicillin
CPT/HCPCS: 96372; 99283; J1885

== ENCOUNTER 2020-12-18 08:16 | Emergency (ER) | payer OTHER ==
[~2020-12-18] VITALS: Ht 162.6 cm; Wt 77.7 kg
[~2020-12-18 08:16] MED LIST changes: +IBUP-2213 PO; +PRED20TA5 PO
[2020-12-18 08:17] VITALS: BP 158/75
--- NOTE | 2020-12-18 08:28 | NUR ---
PT AMBULATED TO BED 4, STEADY GAIT.
--- NOTE | 2020-12-18 08:30 | NUR ---
Dr. Zavaleta at the bedside evaluating patient.
--- NOTE | 2020-12-18 08:31 | NUR ---
C/O RIGHT GROIN PAIN, REDNESS, SWELLING X 3 DAYS.BLOOD SUGAR 296 AT THIS TIME. PMH:DM,HTN, HERNIORRHAPHY L GROINX2
[2020-12-18] MEDS ORDERED: LIDOCAINE 2% 1000 MG/50 ML VIAL INJ ONE (08:35)
--- NOTE | 2020-12-18 08:40 | NUR ---
Dr. Zavaleta at the bedside performing procedure on patient.
[2020-12-18] MEDS ORDERED: CLIN-223 PO (09:03)
--- NOTE | 2020-12-18 09:05 | NUR ---
NON ADHERENT GAUZE WAS PLACED ON PTS WOUND.
[2020-12-18 09:09] VITALS: BP 158/75
--- NOTE | 2020-12-18 09:10 | NUR ---
Patient discharged with v/s stable. Written and verbal after care instructions given and explained. Patient alert, oriented and verbalized understanding of instructions. Ambulatory with steady gait. All questions addressed prior to discharge. ID band removed. Patient advised to follow up with PMD. Rx of clindamycin given. Patient educated on indication of medication including possible reaction and side effects. Opportunity to ask questions provided and answered.
== END 2020-12-18 09:10 | disposition home or self-care (01) ==
LOC: MED 08:16
DX: L02.214 Cutaneous abscess of groin (principal); E11.9 Type 2 diabetes mellitus without complications; I10 Essential (primary) hypertension
CPT/HCPCS: 10060; 81002; 99283; J2001

== ENCOUNTER 2021-05-08 20:22 | Emergency (ER) | payer OTHER ==
[~2021-05-08] VITALS: Ht 152.4 cm; Wt 72.6 kg
[~2021-05-08 20:22] MED LIST changes: +CLIN-223 PO
[2021-05-08 20:42] VITALS: BP 151/83
--- NOTE | 2021-05-08 20:42 | NUR ---
TO BED AMBULATORY
[2021-05-08] MEDS ORDERED: ACETAMINOPHEN 325 MG TAB PO ONE (21:25)
[2021-05-08 21:50] VITALS: BP 151/83
== END 2021-05-08 21:50 | disposition home or self-care (01) ==
LOC: MED 20:22
DX: S60.222A Contusion of left hand, initial encounter (principal); S60.221A Contusion of right hand, initial encounter; E11.9 Type 2 diabetes mellitus without complications; I10 Essential (primary) hypertension; Z98.890 Other specified postprocedural states; Z79.899 Other long term (current) drug therapy; Z79.1 Long term (current) use of non-steroidal anti-inflammatories (NSAID); Z79.2 Long term (current) use of antibiotics; Z79.4 Long term (current) use of insulin; Z88.0 Allergy status to penicillin; W01.0XXA Fall on same level from slipping, tripping and stumbling without subsequent striking against object, initial encounter; Y92.89 Other specified places as the place of occurrence of the external cause; Y93.89 Activity, other specified; Y99.8 Other external cause status
CPT/HCPCS: 99282

== ENCOUNTER 2021-10-29 16:19 | Emergency (ER) | payer OTHER ==
[~2021-10-29] VITALS: Ht 149.9 cm; Wt 72.6 kg
[2021-10-29 16:41] VITALS: BP 159/65
[2021-10-29] MEDS ORDERED: IBUPROFEN 600 MG TAB PO ONE (18:05)
--- NOTE | 2021-10-29 18:10 | NUR ---
PT AMBULATED TO ER BED 1
[2021-10-29] MEDS ORDERED: IBUP-2213 PO (18:43)
[2021-10-29] MEDS ORDERED: SULF-58 PO (18:43)
[2021-10-29 18:55] VITALS: BP 159/65
--- NOTE | 2021-10-29 18:55 | NUR ---
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 denies any injury, over exertion, trauma or fall. extremity does not appear red, no abrasions, lac or visible deformity noted. pmh: htn, dm2 allergy: penicillin med: denies
--- NOTE | 2021-10-29 18:55 | NUR ---
Patient discharged with v/s stable. Written and verbal after care instructions given and explained. Patient alert, oriented and verbalized understanding of instructions. Ambulatory with steady gait. All questions addressed prior to discharge. ID band removed. Patient advised to follow up with PMD. Rx of bactrim (script) given. Patient educated on indication of medication including possible reaction and side effects. Opportunity to ask questions provided and answered. work note given
== END 2021-10-29 18:55 | disposition home or self-care (01) ==
LOC: MED 16:19
DX: M79.642 Pain in left hand (principal); E11.9 Type 2 diabetes mellitus without complications; I10 Essential (primary) hypertension; Z79.4 Long term (current) use of insulin; Z79.899 Other long term (current) drug therapy; Z88.0 Allergy status to penicillin
CPT/HCPCS: 99283

== ENCOUNTER 2021-11-06 20:05 | Emergency (ER) | payer OTHER ==
[~2021-11-06] VITALS: Ht 149.9 cm; Wt 71.8 kg
[~2021-11-06 20:05] MED LIST changes: +SULF-58 PO
[2021-11-06 20:20] VITALS: BP 155/68
--- NOTE | 2021-11-06 20:29 | NUR ---
Patient ambulated to bed 1.
--- NOTE | 2021-11-06 20:59 | NUR ---
BEATRIZ KAISER TO EXAMINE PATIENT
[2021-11-06 21:29] LABS: BASOPHILS # (AUTO) 0.1 K/uL (0.00-0.22); BASOPHILS % (AUTO) 0.9 % (0.0-2.0); EOSINOPHILS # (AUTO) 0.4 K/uL (0-0.4); EOSINOPHILS % (AUTO) 3.8 % (0.0-4.0); HEMATOCRIT 39.9 % (36-48); HEMOGLOBIN 13.4 g/dL (12.0-16.0); LYMPHOCYTES # (AUTO) 3.1 K/uL (2.5-16.5); LYMPHOCYTES % (AUTO) 28.4 % (20.5-51.1); MEAN CORPUSCULAR HEMOGLOBIN 30 pg (27-31); MEAN CORPUSCULAR HGB CONC 34 g/dL (33-37); MEAN CORPUSCULAR VOLUME 88.6 fL (80-94); MONOCYTES # (AUTO) 0.9 K/uL (0.8-1.0); MONOCYTES % (AUTO) 7.9 % (1.7-9.3); NEUTROPHILS # (AUTO) 6.5 K/uL (1.8-7.7); PLATELET COUNT (AUTO) 285 K/uL (140-450); RED CELL DISTRIBUTION WIDTH 14.3 % (11.6-13.7)
--- NOTE | 2021-11-06 21:29 | NUR ---
TELE NEURO EVAL IN BED 1 AT 2125 TELE NEURO CALLED AND ASKED FOR IMAGING RESULTS FAX [phone]
--- NOTE | 2021-11-06 21:33 | NUR ---
FAX TO [facility] COMPLETED
--- NOTE | 2021-11-06 21:39 | NUR ---
patient ambulated to the bathroom for urine collection
[2021-11-06] MEDS ORDERED: ASPIRIN 325 MG TAB PO ONE (21:45)
--- NOTE | 2021-11-06 21:49 | NUR ---
ADMITTING INSTRUCTED THAT ADMISSION GOES TO [facility]
--- NOTE | 2021-11-06 21:52 | NUR ---
SWABBED PATIENT FOR COVID AND BROUGHT URINE TO LAB.
[2021-11-06 21:54] LABS: PROTHROMBIN TIME 9.3 secs (10.8-13.4)
[2021-11-06 21:56] LABS: ALBUMIN 3.8 g/dL (3.4-5.0); ANION GAP 13.3 (8-16); ASPARTATE AMINOTRANSFERASE 15 U/L (15-37); CHLORIDE 103 mmol/L (98-107); GFR ARICAN-AMERICAN 73 mL/min (>90); GLUCOSE 108 mg/dL (74-106); POTASSIUM 4.3 mmol/L (3.5-5.1); SODIUM SERUM 134 mmol/L (136-145); TOTAL BILIRUBIN 0.2 mg/dL (0.0-1.0); UREA NITROGEN, BLOOD 21 mg/dL (7-18)
--- NOTE | 2021-11-06 22:20 | NUR ---
Called [facility] no answer at this time.
--- NOTE | 2021-11-06 22:21 | NUR ---
[facility] ON SCENE FOR TX
[2021-11-06 22:22] LABS: APPEARANCE,URINE CLEAR (CLEAR); BILIRUBIN,URINE NEGATIVE (NEGATIVE); BLOOD, URINE NEGATIVE (NEGATIVE); COLOR,URINE YELLOW (YELLOW); LEUKOCYTE ESTERASE ,URINE 2+ (NEGATIVE); NITRITE, URINE NEGATIVE (NEGATIVE); UGLUCOSE NEGATIVE (NEGATIVE)
--- NOTE | 2021-11-06 22:28 | NUR ---
Patient to be transferred to [facility]. Is being transferred due to higher level of care. Receiving facility has accepting physician and available space. ER physician has signed transfer form. Patient or responsible alliance party has agreed to transfer and signed form. Patient belongings inventoried and will be sent with patient. Copy of nursing notes, lab reports, EKG, Physicians Orders and X-rays to be sent with patient. Report called to Anaya AVILA at receiving facility. [facility] ambulance service has been called for transfer.
[2021-11-06 22:34] VITALS: BP 155/68
--- NOTE | 2021-11-06 22:34 | NUR ---
[facility] LEFT WITH PT
[2021-11-06 22:35] LABS: RBC,URINE 0-5 /HPF (0-5)
== END 2021-11-06 22:31 ==
LOC: MED 20:05
DX: I63.9 Cerebral infarction, unspecified (principal); Z20.822 Contact with and (suspected) exposure to COVID-19; E11.9 Type 2 diabetes mellitus without complications; I10 Essential (primary) hypertension; Z79.4 Long term (current) use of insulin; Z79.899 Other long term (current) drug therapy; Z88.0 Allergy status to penicillin; Z98.890 Other specified postprocedural states
CPT/HCPCS: 36415; 70450; 71045; 80053; 81001; 82948; 84484; 85025; 85610; 85730; 86886; 86900; 86901; 87086; 87426; 93005; 99291; Q0092

== ENCOUNTER 2022-02-16 14:44 | Emergency (ER) | payer OTHER ==
[~2022-02-16] VITALS: Ht 149.9 cm; Wt 71.7 kg
[2022-02-16 15:21] VITALS: BP 115/54
--- NOTE | 2022-02-16 15:28 | NUR ---
PT AMB TO BED 9.
--- NOTE | 2022-02-16 15:37 | NUR ---
62 Y/O FEMALE C/O N/V AND ABDOMINAL PAIN X2 DAYS. DENIES BLOOD IN EMESIS, DIARRHEA, DENIES PAIN. DENIES EATING DIFFERENT FOOD. PT REPORTS "I CAN'T KEEP FOOD DOWN". BOWEL SOUNDS HEARD IN ALL QUADRANTS. AOX4. RESPIRATIONS EVEN AND UNLABORED. ALLERGIES: PENICILLIN PMH: DM 2, HTN
--- NOTE | 2022-02-16 15:37 | NUR ---
PT DENIES DIZZINESS AT THIS TIME.
[2022-02-16] MEDS ORDERED: ALUMINUM HYD/MAG/SIMETHICONE 30 ML UDC PO ONE (15:55)
[2022-02-16] MEDS ORDERED: FAMOTIDINE 20 MG TAB PO ONE (15:55)
[2022-02-16] MEDS ORDERED: ONDANSETRON 4 MG ODT PO ONE (15:55)
[2022-02-16 16:09] LABS: BASOPHILS # (AUTO) 0.1 K/uL (0.00-0.22); BASOPHILS % (AUTO) 0.8 % (0.0-2.0); EOSINOPHILS # (AUTO) 0.2 K/uL (0-0.4); EOSINOPHILS % (AUTO) 1.5 % (0.0-4.0); HEMATOCRIT 37.7 % (36-48); HEMOGLOBIN 12.5 g/dL (12.0-16.0); LYMPHOCYTES # (AUTO) 2.9 K/uL (2.5-16.5); LYMPHOCYTES % (AUTO) 24.5 % (20.5-51.1); MEAN CORPUSCULAR HEMOGLOBIN 29 pg (27-31); MEAN CORPUSCULAR HGB CONC 33 g/dL (33-37); MEAN CORPUSCULAR VOLUME 87.3 fL (80-94); MONOCYTES # (AUTO) 0.8 K/uL (0.8-1.0); MONOCYTES % (AUTO) 7.1 % (1.7-9.3); NEUTROPHILS # (AUTO) 7.8 K/uL (1.8-7.7); NEUTROPHILS % (AUTO) 66.1 % (42.2-75.2); PLATELET COUNT (AUTO) 275 K/uL (140-450); RED BLOOD CELL COUNT(AUTO) 4.32 MIL/uL (4.20-5.40); RED CELL DISTRIBUTION WIDTH 14.1 % (11.6-13.7); WHITE BLOOD COUNT (AUTO) 11.8 K/uL (4.8-10.8)
--- NOTE | 2022-02-16 16:18 | NUR ---
PT AMBULATED WITH STEADY GAIT TO BATHROOM.
--- NOTE | 2022-02-16 16:23 | NUR ---
PT RESTING COMFORTABLY IN BED.
[2022-02-16 16:25] LABS: ALBUMIN 3.4 g/dL (3.4-5.0); ANION GAP 11.1 (8-16); ASPARTATE AMINOTRANSFERASE 17 U/L (15-37); CARBON DIOXIDE 28.6 mmol/L (21-32); CHLORIDE 106 mmol/L (98-107); CREATININE 0.6 mg/dL (0.6-1.3); GFR ARICAN-AMERICAN 131 mL/min (>90); GLUCOSE 93 mg/dL (74-106); POTASSIUM 3.7 mmol/L (3.5-5.1); SODIUM SERUM 142 mmol/L (136-145); TOTAL BILIRUBIN 0.2 mg/dL (0.0-1.0); UREA NITROGEN, BLOOD 11 mg/dL (7-18)
--- NOTE | 2022-02-16 17:08 | NUR ---
PT GIVEN APPLE JUICE AND CRACKERS
--- NOTE | 2022-02-16 17:21 | NUR ---
DR BUSTOS AT BEDSIDE.
[2022-02-16] MEDS ORDERED: ALUM355S59 PO (17:26)
[2022-02-16] MEDS ORDERED: FAMO-90 PO (17:26)
--- NOTE | 2022-02-16 17:32 | NUR ---
Patient discharged with v/s stable. Written and verbal after care instructions ABOUT GASTROESOPHAGEAL REFLUX given and explained. Patient verbalized understanding. ID WRISTBAND REMOVED. RX FOR MAALOX AND FAMOTIDINE GIVEN. Ambulatory with steady gait. All questions addressed prior to discharge. Advised to follow up with PMD.
== END 2022-02-16 17:32 | disposition home or self-care (01) ==
LOC: MED 14:44
DX: R10.13 Epigastric pain (principal); I10 Essential (primary) hypertension; K21.9 Gastro-esophageal reflux disease without esophagitis; E11.9 Type 2 diabetes mellitus without complications; Z88.0 Allergy status to penicillin; Z79.4 Long term (current) use of insulin; Z79.899 Other long term (current) drug therapy
CPT/HCPCS: 36415; 80053; 81002; 84484; 85025; 93005; 99284; Q0162

== ENCOUNTER 2022-06-13 05:46 | Emergency (ER) | payer OTHER ==
[~2022-06-13] VITALS: Ht 149.9 cm; Wt 81.6 kg
[~2022-06-13 05:46] MED LIST changes: +ALUM355S59 PO; +FAMO-90 PO
[2022-06-13 06:12] VITALS: BP 144/86
--- NOTE | 2022-06-13 06:17 | NUR ---
TO LOBBY FOLLOWING TRIAGE
--- NOTE | 2022-06-13 06:26 | NUR ---
PT TO BED #6
--- NOTE | 2022-06-13 06:27 | NUR ---
Patient being evaluated by physician at bedside.
[2022-06-13] MEDS ORDERED: BENZ200C4 PO (06:29)
[2022-06-13] MEDS ORDERED: IBUP-2213 PO (06:30)
[2022-06-13 06:40] VITALS: BP 144/86
--- NOTE | 2022-06-13 06:40 | NUR ---
Patient discharged with v/s stable. Written and verbal after care instructions given and explained. Patient alert, oriented and verbalized understanding of instructions. Ambulatory with steady gait. All questions addressed prior to discharge. ID band removed. Patient advised to follow up with PMD. Rx of IBUPROFEN BENZONATATE given. Patient educated on indication of medication including possible reaction and side effects. Opportunity to ask questions provided and answered.
== END 2022-06-13 06:40 | disposition home or self-care (01) ==
LOC: MED 05:46
DX: J06.9 Acute upper respiratory infection, unspecified (principal); I10 Essential (primary) hypertension; E11.9 Type 2 diabetes mellitus without complications; K21.9 Gastro-esophageal reflux disease without esophagitis; Z79.4 Long term (current) use of insulin; Z79.899 Other long term (current) drug therapy; Z88.0 Allergy status to penicillin
CPT/HCPCS: 99283

== ENCOUNTER 2022-10-11 22:24 | Emergency (ER) | payer OTHER ==
[~2022-10-11] VITALS: Ht 149.9 cm; Wt 78.9 kg
[~2022-10-11 22:24] MED LIST changes: +BENZ200C4 PO
[2022-10-11 22:46] VITALS: BP 160/65
--- NOTE | 2022-10-11 23:35 | NUR ---
PT TO BED #11
--- NOTE | 2022-10-12 00:05 | NUR ---
MD Cortez at bedside examining pt.
[2022-10-12] MEDS ORDERED: SULFAMETH/TRIMETH DS 800/160MG 1 TAB PO ONE (00:15)
[2022-10-12] MEDS ORDERED: SULF-59 PO ×2 (00:16→00:17)
--- NOTE | 2022-10-12 00:30 | NUR ---
Pt medicated as ordered; domingo well.
--- NOTE | 2022-10-12 00:35 | NUR ---
Patient discharged with v/s stable. Written and verbal after care instructions given and explained. Patient alert, oriented and verbalized understanding of instructions. All questions addressed prior to discharge. ID band removed. Patient advised to follow up with PMD. Rx of Bactrim sent to preferred pharmacy. Patient educated on indication of medication including possible reaction and side effects. Opportunity to ask questions provided and answered.
[2022-10-12 00:36] VITALS: BP 129/60
== END 2022-10-12 00:36 | disposition home or self-care (01) ==
LOC: MED 22:24
DX: L02.215 Cutaneous abscess of perineum (principal); E11.9 Type 2 diabetes mellitus without complications; K21.9 Gastro-esophageal reflux disease without esophagitis; I10 Essential (primary) hypertension; Z98.890 Other specified postprocedural states; Z79.899 Other long term (current) drug therapy; Z79.1 Long term (current) use of non-steroidal anti-inflammatories (NSAID); Z79.2 Long term (current) use of antibiotics; Z79.4 Long term (current) use of insulin; Z88.0 Allergy status to penicillin
CPT/HCPCS: 99284

== ENCOUNTER 2023-05-23 01:25 | Emergency (ER) | payer OTHER ==
[~2023-05-23] VITALS: Ht 149.9 cm; Wt 72.6 kg
[~2023-05-23 01:25] MED LIST changes: +SULF-59 PO
[2023-05-23 01:37] VITALS: BP 177/75; PULSE 59; RESP 18; TEMP 97.6; O2SAT 100
[2023-05-23] MEDS ORDERED: NACL 0.9% 1,000 ML IV ONE (02:45)
[2023-05-23] MEDS ORDERED: ENALAPRILAT 2.5 MG/2 ML VIAL IVP ONE (02:45)
[2023-05-23] MEDS ORDERED: MORPHINE SULFATE 4 MG/ML SYR IVP ONE (02:45)
[2023-05-23 03:14] LABS: BASOPHILS # (AUTO) 0.1 K/uL (0.00-0.22); BASOPHILS % (AUTO) 1.1 % (0.0-2.0); EOSINOPHILS # (AUTO) 0.4 K/uL (0-0.4); EOSINOPHILS % (AUTO) 3.3 % (0.0-4.0); HEMATOCRIT 41.8 % (36-48); HEMOGLOBIN 14.1 g/dL (12.0-16.0); LYMPHOCYTES # (AUTO) 2.8 K/uL (2.5-16.5); LYMPHOCYTES % (AUTO) 21.3 % (20.5-51.1); MEAN CORPUSCULAR HEMOGLOBIN 30 pg (27-31); MEAN CORPUSCULAR HGB CONC 34 g/dL (33-37); MEAN CORPUSCULAR VOLUME 87.5 fL (80-94); MONOCYTES # (AUTO) 0.9 K/uL (0.8-1.0); MONOCYTES % (AUTO) 7.3 % (1.7-9.3); NEUTROPHILS # (AUTO) 8.7 K/uL (1.8-7.7); PLATELET COUNT (AUTO) 297 K/uL (140-450); RED BLOOD CELL COUNT(AUTO) 4.77 MIL/uL (4.20-5.40); RED CELL DISTRIBUTION WIDTH 14.1 % (11.6-13.7)
[2023-05-23 03:49] LABS: ALBUMIN 3.5 g/dL (3.4-5.0); ANION GAP 9.8 (8-16); CALCIUM 9.9 mg/dL (8.5-10.1); CARBON DIOXIDE 29.9 mmol/L (21-32); CREATININE 0.8 mg/dL (0.6-1.3); POTASSIUM 3.7 mmol/L (3.5-5.1); TOTAL BILIRUBIN 0.2 mg/dL (0.0-1.0); TOTAL PROTEIN, SERUM 7.4 g/dL (6.4-8.2)
[2023-05-23] MEDS ORDERED: NAPR-1717 PO (06:01)
[2023-05-23 06:14] VITALS: BP 150/44; PULSE 52; RESP 18; TEMP 98.1; O2SAT 96
== END 2023-05-23 06:16 | disposition home or self-care (01) ==
LOC: MED 01:25
DX: R10.9 Unspecified abdominal pain (principal); K21.9 Gastro-esophageal reflux disease without esophagitis; E11.9 Type 2 diabetes mellitus without complications; I10 Essential (primary) hypertension; Z79.4 Long term (current) use of insulin; Z79.899 Other long term (current) drug therapy
CPT/HCPCS: 36415; 74177; 80053; 85025; 96361; 96374; 99285; J2270; J7030; Q9967; J3490

== ENCOUNTER 2023-12-28 16:56 | Emergency (ER) | payer OTHER ==
[~2023-12-28] VITALS: Ht 149.9 cm; Wt 67.1 kg
[~2023-12-28 16:56] MED LIST changes: +NAPR-1717 PO
[2023-12-28 17:19] VITALS: BP 151/54; PULSE 65; RESP 18; TEMP 97.7; O2SAT 99
[2023-12-28 17:59] VITALS: TEMP 97.7
[2023-12-28 18:21] LABS: BASOPHILS # (AUTO) 0.1 K/uL (0.00-0.22); BASOPHILS % (AUTO) 0.8 % (0.0-2.0); EOSINOPHILS # (AUTO) 0.3 K/uL (0-0.4); EOSINOPHILS % (AUTO) 2.6 % (0.0-4.0); HEMATOCRIT 41.5 % (36-48); LYMPHOCYTES # (AUTO) 2.4 K/uL (2.5-16.5); LYMPHOCYTES % (AUTO) 22.3 % (20.5-51.1); MEAN CORPUSCULAR HEMOGLOBIN 30 pg (27-31); MEAN CORPUSCULAR HGB CONC 34 g/dL (33-37); MEAN CORPUSCULAR VOLUME 88.2 fL (80-94); MONOCYTES # (AUTO) 0.7 K/uL (0.8-1.0); MONOCYTES % (AUTO) 6.4 % (1.7-9.3); NEUTROPHILS # (AUTO) 7.2 K/uL (1.8-7.7); NEUTROPHILS % (AUTO) 67.9 % (42.2-75.2); PLATELET COUNT (AUTO) 237 K/uL (140-450); RED BLOOD CELL COUNT(AUTO) 4.71 MIL/uL (4.20-5.40); WHITE BLOOD COUNT (AUTO) 10.6 K/uL (4.8-10.8)
[2023-12-28] MEDS: NACL 0.9% 1,000 ML IV SCH (18:21)
[2023-12-28] MEDS: KETOROLAC 30 MG/ML VIAL IVP ONE (18:21)
[2023-12-28 18:28] LABS: APPEARANCE,URINE CLEAR (CLEAR); BILIRUBIN,URINE NEGATIVE (NEGATIVE); BLOOD, URINE NEGATIVE (NEGATIVE); COLOR,URINE YELLOW (YELLOW); LEUKOCYTE ESTERASE ,URINE NEGATIVE (NEGATIVE); NITRITE, URINE NEGATIVE (NEGATIVE); PROTEIN,URINE NEGATIVE (NEGATIVE); UGLUCOSE 3+ (NEGATIVE); UROBILINOGEN,URINE 0.2 EU/dL (0.2 - 1)
[2023-12-28 18:36] LABS: ANION GAP 17.1 (8-16); CALCIUM 8.8 mg/dL (8.5-10.1); CARBON DIOXIDE 23.1 mmol/L (21-32); CREATININE 0.6 mg/dL (0.6-1.3); POTASSIUM 4.2 mmol/L (3.5-5.1)
[2023-12-28 18:40] LABS: ALBUMIN 2.9 g/dL (3.4-5.0); TOTAL BILIRUBIN 0.4 mg/dL (0.0-1.0); TOTAL PROTEIN, SERUM 6.5 g/dL (6.4-8.2)
[2023-12-28] MEDS ORDERED: ACET-8905 PO (19:32)
[2023-12-28 20:00] VITALS: BP 159/43; PULSE 57; RESP 16; O2SAT 97
== END 2023-12-28 20:00 | disposition home or self-care (01) ==
LOC: MED 16:56
DX: R10.9 Unspecified abdominal pain (principal); K21.9 Gastro-esophageal reflux disease without esophagitis; E11.9 Type 2 diabetes mellitus without complications; I10 Essential (primary) hypertension; Z79.4 Long term (current) use of insulin; Z79.899 Other long term (current) drug therapy; Z88.0 Allergy status to penicillin; Z98.890 Other specified postprocedural states
CPT/HCPCS: 36415; 76705; 80048; 80076; 81003; 83690; 85025; 96361; 96374; 99285; J1885; Q0092

== ENCOUNTER 2024-02-24 06:20 | Emergency (ER) | payer OTHER ==
[~2024-02-24] VITALS: Ht 149.9 cm; Wt 67.6 kg
[~2024-02-24 06:20] MED LIST changes: +ACET-8905 PO
[2024-02-24 06:31] VITALS: BP 148/63; PULSE 69; RESP 14; TEMP 97.8; O2SAT 99
[2024-02-24 06:50] VITALS: O2SAT 99
[2024-02-24] MEDS ORDERED: NAPR-337 PO (07:04)
[2024-02-24] MEDS ORDERED: CLIN300C2 PO (07:04)
[2024-02-24] MEDS: KETOROLAC 30 MG/ML VIAL IM ONE (07:10)
[2024-02-24 07:15] VITALS: BP 148/63; PULSE 69; RESP 14; TEMP 97.8; O2SAT 99
== END 2024-02-24 07:16 | disposition home or self-care (01) ==
LOC: MED 06:20
DX: K61.0 Anal abscess (principal); E11.9 Type 2 diabetes mellitus without complications; K21.9 Gastro-esophageal reflux disease without esophagitis; I10 Essential (primary) hypertension; Z79.899 Other long term (current) drug therapy; Z79.4 Long term (current) use of insulin; Z88.0 Allergy status to penicillin
CPT/HCPCS: 96372; 99284; J1885

== ENCOUNTER 2024-02-28 10:26 | Emergency (ER) | payer OTHER ==
[~2024-02-28] VITALS: Ht 149.9 cm; Wt 67.6 kg
[~2024-02-28 10:26] MED LIST changes: +CLIN300C2 PO; +NAPR-337 PO
[2024-02-28 10:32] VITALS: BP 149/50; PULSE 74; RESP 22; TEMP 98.1; O2SAT 98
[2024-02-28 11:21] LABS: BASOPHILS # (AUTO) 0.1 K/uL (0.00-0.22); EOSINOPHILS # (AUTO) 0.3 K/uL (0-0.4); HEMATOCRIT 40.8 % (36-48); HEMOGLOBIN 13.6 g/dL (12.0-16.0); RED CELL DISTRIBUTION WIDTH 13.9 % (11.6-13.7)
[2024-02-28 11:25] LABS: BASOPHILS % (AUTO) 0.6 % (0.0-2.0); EOSINOPHILS % (AUTO) 1.6 % (0.0-4.0); LYMPHOCYTES % (AUTO) 11.4 % (20.5-51.1); MEAN CORPUSCULAR HEMOGLOBIN 29 pg (27-31); MEAN CORPUSCULAR HGB CONC 33 g/dL (33-37); MEAN CORPUSCULAR VOLUME 87.6 fL (80-94); MONOCYTES # (AUTO) 1.2 K/uL (0.8-1.0); MONOCYTES % (AUTO) 6.9 % (1.7-9.3); NEUTROPHILS # (AUTO) 13.8 K/uL (1.8-7.7); NEUTROPHILS % (AUTO) 79.5 % (42.2-75.2); PLATELET COUNT (AUTO) 266 K/uL (140-450); RED BLOOD CELL COUNT(AUTO) 4.66 MIL/uL (4.20-5.40); WHITE BLOOD COUNT (AUTO) 17.3 K/uL (4.8-10.8)
[2024-02-28 11:39] LABS: ANION GAP 16.8 (8-16); CALCIUM 9.2 mg/dL (8.5-10.1); CARBON DIOXIDE 22.3 mmol/L (21-32); CREATININE 0.7 mg/dL (0.6-1.3); POTASSIUM 5.1 mmol/L (3.5-5.1)
[2024-02-28] MEDS: ONDANSETRON 4 MG/2 ML VIAL IVP ONE (11:40)
[2024-02-28] MEDS: MORPHINE SULFATE 4 MG/ML SYR IVP ONE (11:41)
[2024-02-28] MEDS: NACL 0.9% 1,000 ML IV ONE (11:42)
[2024-02-28] MEDS: INSULIN REGULAR, HUMAN 100 UNIT/ML VIAL IV ONE (12:29)
[2024-02-28 13:33] VITALS: BP 149/50; PULSE 74; RESP 22; TEMP 98.1; O2SAT 98
== END 2024-02-28 10:39 | disposition home or self-care (01) ==
LOC: MED 10:26
DX: L02.31 Cutaneous abscess of buttock (principal); L03.317 Cellulitis of buttock; E11.65 Type 2 diabetes mellitus with hyperglycemia; K21.9 Gastro-esophageal reflux disease without esophagitis; I10 Essential (primary) hypertension; Z79.899 Other long term (current) drug therapy; Z79.4 Long term (current) use of insulin; Z88.0 Allergy status to penicillin
CPT/HCPCS: 10060; 36415; 80048; 82803; 82948; 85025; 96361; 96374; 96375; 99284; J1815; J2270; J2405; J7030

== ENCOUNTER 2024-03-06 09:18 | Emergency (ER) | payer OTHER ==
[~2024-03-06] VITALS: Ht 149.9 cm; Wt 67.4 kg
[2024-03-06 09:42] VITALS: BP 133/46; PULSE 74; RESP 18; TEMP 98.5; O2SAT 98
[2024-03-06 09:45] VITALS: BP 133/46; PULSE 74; RESP 18; TEMP 98.5; O2SAT 98
[2024-03-06] MEDS: LIDOCAINE MPF 1% 10 MG/ML VIAL INJ ONE (10:49)
[2024-03-06] MEDS: MORPHINE SULFATE 4 MG/ML SYR IVP ONE (11:10)
[2024-03-06] MEDS ORDERED: DOXY-690 PO (11:59)
== END 2024-03-06 12:15 | disposition home or self-care (01) ==
LOC: MED 09:18
DX: L02.31 Cutaneous abscess of buttock (principal); E11.9 Type 2 diabetes mellitus without complications; I10 Essential (primary) hypertension; K21.9 Gastro-esophageal reflux disease without esophagitis; Z79.899 Other long term (current) drug therapy; Z79.4 Long term (current) use of insulin; Z88.0 Allergy status to penicillin
CPT/HCPCS: 10060; 96374; 99284; J2001; J2270